=== PATIENT | female | born 1980 | race Caucasian/White ===

== ENCOUNTER 2019-11-09 16:30 | Emergency (ER) | payer OTHER ==
[~2019-11-09] VITALS: Ht 154.9 cm; Wt 81.7 kg
[2019-11-09] MEDS ORDERED: ELIQUIS5 MG PO (16:44)
[2019-11-09] MEDS ORDERED: VITAMIN D3250 MC2 PO (16:45)
[2019-11-09] MEDS ORDERED: WELLBUTRIN SR150 MG PO (16:46)
[2019-11-09] MEDS ORDERED: VITAMIN B-12500 MCG PO (16:46)
[2019-11-09] MEDS ORDERED: OMEPRAZOLE40 MG PO (16:46)
[2019-11-09] MEDS ORDERED: SPIRONOLACTONE25 MG PO (16:47)
[2019-11-09] MEDS ORDERED: ADVAIR 100-501 EACH INH (16:47)
[2019-11-09] MEDS ORDERED: FUROSEMIDE 20 M20 MG PO (16:47)
[2019-11-09] MEDS ORDERED: PEPCID20 MG PO (16:47)
[2019-11-09] MEDS ORDERED: ALBUTEROL2.5 MG/0.1 INH (16:48)
[2019-11-09] MEDS ORDERED: TRAMADOL 50 MG50 MG PO (16:48)
[2019-11-09] MEDS ORDERED: SPIRIVA INH (16:48)
[2019-11-09] MEDS ORDERED: CRANBERRY200 MG PO (16:48)
[2019-11-09] MEDS ORDERED: LEVSIN0.125 MG PO (16:49)
[2019-11-09] MEDS ORDERED: SOMA250 MG PO (16:49)
[2019-11-09] MEDS ORDERED: BIOTIN0.5 GM PO (16:49)
[2019-11-09 19:02] VITALS: BP 120/77
== END 2019-11-09 19:03 | disposition home or self-care (01) ==
LOC: EDSEX 16:30 → M.ERS 16:30
DX: S93.492A Sprain of other ligament of left ankle, initial encounter (principal); J45.909 Unspecified asthma, uncomplicated; M79.7 Fibromyalgia; W18.39XA Other fall on same level, initial encounter; Y93.89 Activity, other specified; Y92.89 Other specified places as the place of occurrence of the external cause; Y99.8 Other external cause status